=== PATIENT | male | born 1945 | race Caucasian/White ===

== ENCOUNTER → 2016-08-07 | Outpatient (CLI) | payer MEDICARE ==
--- NOTE | 2016-08-07 15:04 | CONS ---
DATE OF CONSULTATION: 08/07/2016 CONSULTATION/NEW PATIENT EVALUATION A 70-year-old gentleman who has been evaluated in the sleep center for possible obstructive sleep apnea-hypopnea syndrome. HISTORY OF PRESENT ILLNESS/SLEEP-WAKE EVALUATION: SLEEP SCHEDULE: Patient's usual sleep schedule is from 10:00 p.m. to 6:30 a.m. basically 7 days a week. FALLING ASLEEP: No problem with falling asleep. No TV in bedroom. DURING SLEEP: He sleeps usually on the side position. If he goes to the back position, he wakes up with choking. He snores during the sleep according to his quite loudly. DURING THE DAY/WAKE STATE: The patient denied any significant sleepiness during the day. [place] Sleepiness Scale is one. He does not stay in the naps. PAST MEDICAL HISTORY: Positive for prostate carcinoma, status post prostatectomy, basal cell carcinoma of the face, arm and chest. Questionable history of stroke about 1-1/2 years ago with the problem with short episode of problem with speech. Acid reflux. MEDICATIONS: Omeprazole, Aleve. SOCIAL HISTORY: Positive for smoking about for 10 years; quit 40 years ago. Alcohol consumption 2 glasses of wine with dinner most of the nights. REVIEW OF SYSTEMS: Snoring, awakenings from sleep with choking. Primary acid reflux, ulcers, cancer. No fevers. No double vision. No recent chest pain. No shortness of breath. No abdominal pain. No bleeding episodes. No blood in urine. No seizure episodes. PHYSICAL EXAMINATION: GENERAL: A pleasant 70-year-old gentleman without distress. VITAL SIGNS: BP 160/92, HR 83, RR 16. Height 69. Weight 240.4. Temperature 98.7, oxygen saturation at room air 97%. BMI 35.4. Neck 18-1/4 inches in circumference. HEENT: PERRLA, EOMI. Evaluation of oropharynx showed low position of soft palate. Some redness of the face. NECK: Supple. No JVD. Thyroid is not palpable. LUNGS: Clear to percussion and to auscultation. Good air exchange. No wheezing or rhonchi. HEART: S1, S2 regular. No murmurs, gallops or rubs. ABDOMEN: Slightly obese. Soft and nontender. Bowel sounds are present. No organomegaly appreciated. EXTREMITIES: No clubbing or cyanosis. HEAD OF DIGITAL: Awake, alert, and oriented x3. Cranial nerves 2 to 7 intact. There is no fasciculation or atrophy noted. No focal deficits observed. IMPRESSION: 1. Snoring, awakenings from choking while on the back position, low position of soft palate, wide neck, obesity, body mass index of 35.4; obstructive sleep apnea-hypopnea syndrome. 2. Hypertension in the office. 3. Some redness over the face. 4. Acid reflux. 5. History of right shoulder problems. 6. History of prostate cancer, status post prostatectomy. 7. History of basal cell carcinoma of the face, arm and chest areas status post surgical treatment. 8. History of questionable stroke about 1-1/2 years ago with problem of the speech at that time. PLAN: 1. Polysomnography for evaluation of patient's breathing during sleep. 2. CPAP/BiPAP titration if sleep study confirms obstructive sleep apnea-hypopnea syndrome. 3. Preferable position during sleep on the side. 4. No driving if patient feels any sleepiness. Patient is aware of civil and criminal liability for unsafe driving. 5. I will see patient for follow-up visit to explain results of the testing and following plan. 6. Please check patient's level of hemoglobin and hematocrit to be sure that it is not increased above normal. Thank you very much for referring this patient for consultation. Sincerely, Jaziel Nicholas MD, PhD, FAASM. Diplomat of [place] [employer], Sleep Medicine Board by [place] [employer] of [facility] [place]
== END | disposition home or self-care (01) ==
LOC: SLEEP 11:28
PROVIDERS: ATTEND Internal Medicine
DX: G47.33 Obstructive sleep apnea (adult) (pediatric) (principal); E66.9 Obesity, unspecified; I10 Essential (primary) hypertension; K21.9 Gastro-esophageal reflux disease without esophagitis; Z68.35 Body mass index [BMI] 35.0-35.9, adult
CPT/HCPCS: 99201

== ENCOUNTER → 2016-09-17 | Outpatient (CLI) | payer MEDICARE ==
--- NOTE | 2016-09-17 10:59 | ECHOF ---
Referral Reason:R94.31 adn ekg MEASUREMENTS -------- HEIGHT: 185.4 cm WEIGHT: 106.6 kg BP: 194/95 RVIDd: 2.7 cm (< 3.3) IVSd: 1.1 cm (0.6 - 1.1) LVIDd: 4.2 cm (3.9 - 5.3) LVPWd: 1.2 cm (0.6 - 1.1) IVSs: 1.6 cm LVIDs: 2.8 cm LVPWs: 1.7 cm LA Diam: 3.1 cm (2.7 - 3.8) LAESV Index (A-L): 26.27 ml/m Ao Diam: 4.0 cm (2.0 - 3.7) AV Cusp: 2.6 cm (1.5 - 2.6) MV EXCURSION: 17.354 mm (> 18.000) MV EF SLOPE: 95 mm/s (70 - 150) EPSS: 0.8 cm MV E Ilan: 0.64 m/s MV DecT: 211 ms MV A Ilan: 0.79 m/s MV E/A Ratio: 0.80 FINDINGS -------- Sinus rhythm. This was a technically adequate study. The left ventricular size is normal. There is borderline concentric left ventricular hypertrophy. Overall left ventricular systolic function is normal with, an EF between 55 - 60 %. The right ventricle is normal in size and function. Normal LA size by volume 22+/-6 ml/m2. The right atrium is normal in size. Aortic valve is trileaflet and is mildly thickened. Mild mitral annular calcification present. There is trace to mild mitral regurgitation. The tricuspid valve appears structurally normal. The pulmonic valve was not well visualized. The aortic root is dilated measuring 4.0cm. IVC Not well visulized. The pericardium is normal. CONCLUSIONS -------- 1. Sinus rhythm. 2. Mild mitral annular calcification present. 3. There is trace to mild mitral regurgitation. 4. The tricuspid valve appears structurally normal. 5. The pulmonic valve was not well visualized. 6. The aortic root is dilated measuring 4.0cm. 7. The pericardium is normal. 8. This was a technically adequate study. 9. The left ventricular size is normal. 10. There is borderline concentric left ventricular hypertrophy. 11. Overall left ventricular systolic function is normal with, an EF between 55 - 60 %. 12. The right ventricle is normal in size and function. 13. Normal LA size by volume 22+/-6 ml/m2. 14. The right atrium is normal in size. 15. Aortic valve is trileaflet and is mildly thickened. BAKER APPRENTICE: Katie White RDCS
--- NOTE | 2016-09-17 11:46 | ECHOS ---
DATE OF SERVICE: 09/17/2016 AGE: 70Y SEX: M HT: 72 WT: 235 lbs. Protocol Hardik: X Others: Stress Echo Stage: II Dur. of Exercise: 5:15 *Heart Rate Blood Pressure *Rest: 63 Rest: 150/78 * *Max. Achieved: 133 Maximum BP: 158/76 85% PMHR: 128 100% PMHR: 151 *METS: 7.1 INDICATIONS: Abnormal EKG, preop. MEDICATIONS: Prilosec, fish oil, Aleve. The test is being done to evaluate chest pains and abnormal EKG. STRESS DATA: Baseline EKG showed sinus rhythm with normal DC interval and QRS duration. Blood pressure at rest is 150/78, pulse rate of 63. Patient walked on the Hardik protocol for about 5 minutes and 15 seconds, achieving a maximum heart rate of rate of 133 with blood pressure of 158/76. EKGs taken during and after exercise did not reveal any significant changes from the baseline. Occasional PVCs were noted. ECHO DATA WITH CONTRAST. Baseline echo images show normal wall motion and thickening. Exercise echo images with contrast showed augmentation of the wall motion and thickening in all the segments. FINAL IMPRESSION: 1. Negative stress test. 2. Negative stress echo.
== END | disposition home or self-care (01) ==
LOC: RADECHMAIN 08:19
PROVIDERS: ATTEND Family Medicine
DX: I08.0 Rheumatic disorders of both mitral and aortic valves (principal)
CPT/HCPCS: 93017; C8928; C8929; Q9957; 93306; 93350

== ENCOUNTER → 2017-11-19 | Outpatient (CLI) | payer MEDICARE ==
[2017-11-19 10:23] LABS: HCT 48.3 % (39.0-53.0); MCH 32.6 pg (25.0-35.0); MCHC 33.2 g/dL (31.0-37.0); MCV 98.4 fL (80.0-100.0); Mean Platelet Volume 6.6; Platelet Count 270 k/uL (150-450); RBC 4.91 m/uL (4.30-5.90); RDW 12.4 % (11.5-15.5); WBC 6.1 k/uL (3.8-10.6)
[2017-11-19 10:33] LABS: Anion Gap 8 mmol/L; Blood Urea Nitrogen 20 mg/dL (9-20); Carbon Dioxide 29 mmol/L (22-30); Chloride 103 mmol/L (98-107); Potassium 4.6 mmol/L (3.5-5.1); Sodium 140 mmol/L (137-145)
== END | disposition home or self-care (01) ==
LOC: LABPAT 09:20
PROVIDERS: ATTEND Internal Medicine Cardiovascular Disease
DX: Z01.812 Encounter for preprocedural laboratory examination (principal); R07.2 Precordial pain
CPT/HCPCS: 36415; 80051; 82565; 84520; 85027

== ENCOUNTER 2017-11-25 07:45 | Day surgery (SDC) | payer MEDICARE ==
[2017-11-23 12:04] VITALS: BMI 31.6
[~2017-11-25 07:45] MED LIST: ALPRAZolam 0.25 MG TAB PO PRN; ALPRAZolam 0.5 MG TAB PO PRN; ASPIRIN 325 MG TAB PO STA; ATORVASTATIN 80 MG TAB PO STA; NITROGLYCERIN SL TABS 0.4 MG TAB SUBLINGUAL PRN; SODIUM CHLORIDE 0.9% 1,000 ML in EMPTY BAG 1 BAG IV ONE
[2017-11-25] MEDS ORDERED: diphenhydrAMINE 50 MG/ML 1 ML VIAL ONE (09:04)
[2017-11-25] MEDS ORDERED: MIDAZOLAM 2 MG/2 ML VIAL ONE (09:04)
[2017-11-25] MEDS ORDERED: fentaNYL (PF) 50 MCG/ML 2 ML AMP ONE (09:04)
[2017-11-25] MEDS ORDERED: MIDAZOLAM 2 MG/2 ML VIAL IVP ONE (09:17)
[2017-11-25] MEDS ORDERED: LIDOCAINE 1% INJ 10MG/ML (20 ML MDV) SQ ONE (09:18)
[2017-11-25] MEDS ORDERED: IOPAMIDOL-370 125ML BTL INJ ONE (09:32)
--- NOTE | 2017-11-25 10:00 | CC ---
CARDIAC CATHETERIZATION REPORT DATE OF SERVICE: 11/25/2017. INDICATION: Exertional chest pain. PROCEDURE NOTE: After obtaining informed consent, left heart catheterization and coronary angiogram were performed via the right femoral artery using standard Cain catheters. The patient tolerated the procedure well without any obvious immediate complications. A femoral angiogram was performed and Angio-Seal was deployed for hemostasis. Patient received moderate conscious sedation. Total sedation time was 15 minutes. FINDINGS: 1. HEMODYNAMICS: Left ventricular end-diastolic pressure is 8 mm. There is no significant gradient across aortic valve. 2. LEFT VENTRICULOGRAM: Left ventriculogram is not performed. 3. ANGIOGRAPHIC DATA: Left main coronary artery left main coronary artery is a normal- sized vessel and is free of stenosis. It divides into left anterior descending coronary artery and circumflex coronary artery. LAD shows mild nonobstructive coronary artery disease. Circumflex coronary artery, which is nondominant vessel, shows mild disease. Right coronary artery is a large dominant vessel, shows mild atherosclerotic plaque in its proximal part. CONCLUSION: Mild nonobstructive coronary artery disease. PLAN: Patient's management is going to be in the form of risk factor modification and optimal medical therapy. I asked him to take an aspirin and continue the Bystolic. I will check his lipid profile and, if necessary, start him on statins. MMODL / IJN: [id number] /
[2017-11-25 10:14] VITALS: RESP 16; TEMP 97.8
[2017-11-25 10:18] LABS: Cholesterol 198 mg/dL (<200); HDL Cholesterol 50 mg/dL (40-60); LDL Cholesterol,Calculated 124 mg/dL (0-99); Triglycerides 118 mg/dL (<150)
[2017-11-25] MEDS ORDERED: SODIUM CHLORIDE 0.9% 1,000 ML IV SCH (10:30)
[2017-11-25] MEDS ORDERED: RX INFO: IV CONTRAST WAS GIVEN 1 EACH MISC MISCELLANE PRN (10:30)
[2017-11-25 12:26] VITALS: PULSE 59
[2017-11-25 13:00] VITALS: BP 121/77
[2017-11-26] MEDS ORDERED: ATORVASTATIN 20 MG TAB PO SCH (09:00)
== END 2017-11-25 15:20 | disposition home or self-care (01) ==
LOC: CATHCVL 07:45 → 3OBS 09:34 → CATHCVL 15:20
PROVIDERS: ATTEND Internal Medicine Cardiovascular Disease
DX: I25.110 Atherosclerotic heart disease of native coronary artery with unstable angina pectoris (principal); I10 Essential (primary) hypertension; Z72.0 Tobacco use; Z79.899 Other long term (current) drug therapy
CPT/HCPCS: 93458; 80061; C1760; C1894; C1769; J2250; J2001; Q9967